=== PATIENT | male | born 1945 | race Caucasian/White ===

== ENCOUNTER → 2016-10-26 | Outpatient (CLI) | payer MEDICARE, BC | LOC: COL.RAD 10:40 | DX: R31.0 Gross hematuria (principal); N40.0 Benign prostatic hyperplasia without lower urinary tract symptoms; N32.89 Other specified disorders of bladder; K76.9 Liver disease, unspecified; I72.8 Aneurysm of other specified arteries | CPT/HCPCS: Q9967 ==